=== PATIENT | female | born 1985 | race Caucasian/White ===

== ENCOUNTER 2016-04-09 19:38 | Emergency (ER) | payer SELFPAY ==
[2016-04-09 19:48] VITALS: RESP 20
--- NOTE | 2016-04-09 19:52 | UCPHY ---
H & P Patient Type: New Chief Complaint Nursing Narrative: cough productive getting worse HPI/ROS: HPI CHIEF COMPLAINT: Cough HISTORY OF PRESENT ILLNESS: This patient very pleasant 30-year-old female, denies having any significant medical history does not take any daily medications, she presents to the urgent care with 3 days of worsening bronchitic sounding cough. Faint wheezing. Patient tells me that she had a cough intermittently for 6 months however over the past 3 days progressively worse. It is worse when she exhales and gets spasm. She denies fever, denies hemoptysis, denies productive cough, denies significant shortness of breath or chest pain or pleuritic pain. Past Medical History: Use take levothyroxine for thyroid disease but does not do so anymore Past Surgical History: denies any significant surgical history Social History: denies daily use tobacco drugs or alcohol Family History: Noncontributory ROS REVIEW OF SYSTEMS: A comprehensive 10 point review of systems is otherwise negative aside from elements mentioned in the history of present illness. Exam Constitutional triage nursing summary reviewed, vital signs reviewed, awake/ alert. Eyes normal conjunctivae and sclera, EOMI, PERRLA. HENT normal inspection, atraumatic, moist mucus membranes, no epistaxis, neck supple/ no meningismus, no raccoon eyes. Respiratory bronchitic sounding cough especially during expiratory phase, no wheezing, clear to auscultation bilaterally, normal breath sounds, no respiratory distress, no wheezing. Cardiovascular rate normal, regular rhythm, no murmur, no edema, distal pulses normal. Gastrointestinal soft, non-tender, no rebound, no guarding, normal bowel sounds, no distension, no pulsatile mass. Genitourinary no CVA tenderness. Musculoskeletal no midline vertebral tenderness, full range of motion, no calf swelling, no tenderness of extremities, no meningismus, good pulses, neurovascularly intact. Skin pink, warm, & dry, no rash, skin atraumatic. Neurologic awake, alert and oriented x 3, AAOx3, moves all 4 extremities equally, motor intact, sensory intact, CN II-XII intact, normal cerebellar, normal vision, normal speech. Psychiatric normal mood/affect. Heme/Lymph/Immune no lymphadenopathy. Differential Diagnosis: Includes but is not limited to in a particular order, upper respiratory tract infection, bronchitis, viral pneumonia, bacterial pneumonia, pneumothorax, pulmonary embolism, pertussis Medical Decision Making: patient had a x-ray chest two view to evaluate for pneumonia pneumothorax, patient be given a DuoNeb breathing treatment here in the emergency room. I feel that this patient benefit from albuterol inhaler, prednisone, guaifenesin and azithromycin. Re-evaluation: ED x-ray chest two view: negative for acute cardiopulmonary disease specifically no appreciable focal acute infiltrate. Image interpreted by myself. Source: Patient - Personal History LMP (Females 10-55): 22-28 Days Ago Current Tetanus/Diphtheria Vaccine: Unsure - Medical/Surgical History Hx Asthma: No Hx Chronic Respiratory Disease: No Hx Diabetes: No Hx Cardiac Disease: No Hx Renal Disease: No Hx Cirrhosis: No Hx Alcoholism: No Hx HIV/AIDS: No Hx Splenectomy or Spleen Trauma: No Other PMH: Normally runs low BP - Family History Significant Family History: No pertinent family hx - Social History Smoking Status: Never smoked Constitutional: Initial Vital Signs Temperature (C) 36.7 C 04/09/16 19:45 Heart Rate 54 L 04/09/16 19:45 Respiratory Rate 20 04/09/16 19:45 Blood Pressure 114/63 04/09/16 19:45 O2 Sat (%) 99 04/09/16 19:45 O2 Delivery Mode Room Air Allergies/Adverse Reactions: No Known Allergies Allergy (Verified 04/09/16 19:44) Home Medications: Medication Instructions Recorded AZITHROMYCIN [Z-PACK] 250 mg PO DAILY #6 tab 04/09/16 Albuterol [Proventil Inhaler HFA 1 - 2 puffs IH Q4H #1 mdi 04/09/16 (*)] Guaifenesin [Guaifenesin ER] 600 mg PO BID #14 tab.er.12h 04/09/16 predniSONE 60 mg PO DAILY #15 tab 04/09/16 Medical Decision Making - Data Points Medications Given: Discontinued Medications Albuterol/Ipratropium (Duoneb) 3 ml IH EDNOW ONE Stop: 04/09/16 20:00 Last Admin: 04/09/16 20:05 Dose: 3 ml Departure - Departure Disposition: Home, Routine, Self-Care Clinical Impression: Bronchitis Condition: Good Instructions: Acute Bronchitis (ED) Additional Instructions: 1. Drink lots of fluids stay well-hydrated 2. take her prescriptions as prescribed. 3.Return to the urgent care or emergency room if develops any worsening symptoms questions or concerns. Referrals: NONE *PRIMARY CARE P,. [Primary Care Provider] - As per Instructions Prescriptions: Albuterol [Proventil Inhaler HFA (*)] 1 - 2 puffs IH Q4H #1 mdi AZITHROMYCIN [Z-PACK] 250 mg PO DAILY #6 tab Guaifenesin [Guaifenesin ER] 600 mg PO BID #14 tab.er.12h predniSONE 60 mg PO DAILY #15 tab - PQRS PQRS Measurement: n/a
[2016-04-09] MEDS ORDERED: IPRATROPIUM/ALBUTEROL 3 ML DEYVIAL IH ONE (19:59)
[2016-04-09 21:15] VITALS: BP 99/64; PULSE 63; TEMP 98.4; O2SAT 94
== END 2016-04-09 21:15 | disposition home or self-care (01) ==
LOC: CED 19:38
DX: J40 Bronchitis, not specified as acute or chronic (principal)
CPT/HCPCS: 71020-PO; 99204-PO; G0463-PO

== ENCOUNTER 2017-06-28 10:54 | Emergency (ER) | payer SELFPAY ==
[2017-06-28 11:29] LABS: PLATELET COUNT 236 10^3/uL (150-400)
--- NOTE | 2017-06-28 11:29 | EDPHY ---
H & P Stated Complaint: RLQ Pain Time Seen by Provider: 06/28/17 11:10 HPI/ROS: CHIEF COMPLAINT: Right lower quadrant abdominal pain HISTORY OF PRESENT ILLNESS: 31-year-old healthy female with no history of abdominal surgeries awoke this morning with sharp stabbing right lower quadrant abdominal pain. No nausea no vomiting. No back or flank pain. No urinary abnormality. Normal bowel movement. No trauma. 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 At the time I interview and examine her she is asymptomatic. PRIMARY CARE PROVIDER: REVIEW OF SYSTEMS: A ten point review of systems was performed and is negative with the exception of the items mentioned in the HPI PAST MEDICAL & SURGICAL HISTORY: No history of abdominal surgery SOCIAL HISTORY: Nonsmoker PHYSICAL EXAM (Prior to examination, patient consented to physical exam, hands were washed and my usual and customary physical exam procedures followed) 1) GENERAL: Well-developed, well-nourished, alert and oriented. Appears to be in no acute distress. Smiling. 2) HEAD: Normocephalic, atraumatic 3) HEENT: Pupils equal, round, reactive to light bilaterally. Sclera anicteric. Nasopharynx, oropharynx, clear, no lesions. 4) NECK: Full range of motion, no meningeal signs. 5) LUNGS: Clear auscultation bilaterally, no wheezes, no rhonchi, no retractions. 6) HEART: Regular rate and rhythm, no murmur, no heave, no gallop. 7) ABDOMEN: No guarding, negative McBurney's point pain, negative So's, negative Rovsing's, negative peritoneal sign, I am unable to elicit any abdominal pain on exam, 8) MUSCULOSKELETAL: Moving all extremities, no focal areas of tenderness, no obvious trauma. No peripheral edema or discoloration. 9) BACK: No CVA tenderness, no midline vertebral tenderness, no fluctuance, no step-off, no obvious trauma, no visual or palpable abnormality. 10) SKIN: No rash, no petechiae. 11) Psychiatric: Patient is oriented X 3, there is no agitation. DIFFERENTIAL DIAGNOSIS: My differential diagnosis includes, but is not limited to, acute appendicitis, acute cholecystitis, bowel obstruction, acute pancreatitis, ovarian torsion, ectopic , gastritis and urinary tract infection. The patient understands that this diagnosis is provisional and can never be 100% accurate. This is a partial list of diagnoses considered. These considerations are based on history, physical exam, past history and reassessment. - Personal History LMP (Females 10-55): 8-14 Days Ago Current Tetanus/Diphtheria Vaccine: No Current Tetanus Diphtheria and Acellular Pertussis (TDAP): No - Medical/Surgical History Hx Asthma: No Hx Chronic Respiratory Disease: No Hx Diabetes: No Hx Cardiac Disease: No Hx Renal Disease: No Hx Cirrhosis: No Hx Alcoholism: No Hx HIV/AIDS: No Hx Splenectomy or Spleen Trauma: No Other PMH: Normally runs low BP - Social History Smoking Status: Never smoked Constitutional: Initial Vital Signs Temperature (C) 36.7 C 06/28/17 11:03 Heart Rate 47 L 06/28/17 11:03 Respiratory Rate 18 06/28/17 11:03 Blood Pressure 99/58 L 06/28/17 11:03 O2 Sat (%) 98 06/28/17 11:03 O2 Delivery Mode Room Air Allergies/Adverse Reactions: No Known Allergies Allergy (Verified 04/09/16 19:44) Home Medications: Medication Instructions Recorded AZITHROMYCIN [Z-PACK] 250 mg PO DAILY #6 tab 04/09/16 Albuterol [Proventil Inhaler HFA 1 - 2 puffs IH Q4H #1 mdi 04/09/16 (*)] guaiFENesin [Guaifenesin ER] 600 mg PO BID #14 tab.er.12h 04/09/16 predniSONE 60 mg PO DAILY #15 tab 04/09/16 Medical Decision Making - Diagnostics Imaging Results: Imaging Impressions Abdomen Ultrasound 06/28/17 11:23 Impression: 1. Nonvisualization of the appendix. Results called to Bob Rahman PA-C, at 1:30 PM. Pelvic/Renal Ultrasound 06/28/17 11:23 Impression: Negative pelvic sonogram. Small follicle cysts within the ovaries, with minimal free fluid left adnexa. Results called to Bob Rahman PA-C, at 1:30 PM. ED Course/Re-evaluation: 11:32 a.m.: Care of patient under supervision of secondary supervising physician Dr Argueta . Will obtain diagnostic studies. 1:45 p.m.: Re-evaluation. At this time she is sitting upright, eating an energy bar, smiling, states that she is has no pain. Re-examined her abdomen at this time which is soft no guarding or rebound no McBurney's point pain. Discussed her imaging results showing bilateral follicular cyst. Appendix not visualized. We discussed options. At this time I think that acute appendicitis is less than likely. I have discussed options including CT imaging now or recheck in 12 hr. She prefers recheck in 12 hr which I think is a reasonable decision. I believe her to have decision-making capacity. Definitely in the meantime she develops new or worsening symptoms to return to the ER sooner. She feels comfortable being discharged. - Data Points Laboratory Results: Laboratory Results 06/28/17 11:15 06/28/17 11:15 06/28/17 06/28/17 06/28/17 11:45 11:15 11:15 WBC RBC Hgb Hct MCV MCH MCHC RDW Plt Count MPV Neut % (Auto) Lymph % (Auto) [place] % (Auto) Eos % (Auto) Baso % (Auto) Nucleat RBC Rel Count Absolute Neuts (auto) Absolute Lymphs (auto) Absolute Monos (auto) Absolute Eos (auto) Absolute Basos (auto) Absolute Nucleated RBC Immature Gran % Immature Gran # Sodium 143 mEq/L mEq/L (135-145) Potassium 3.9 mEq/L mEq/L (3.3-5.0) Chloride 104 mEq/L mEq/L (97-110) Carbon Dioxide 26 mEq/l mEq/l (22-31) Anion Gap 13 mEq/L mEq/L (8-16) BUN 15 mg/dL mg/dL (7-23) Creatinine 0.8 mg/dL mg/dL (0.6-1.0) Estimated GFR > 60 Glucose 85 mg/dL mg/dL (70-100) Calcium 9.2 mg/dL mg/dL (8.5-10.4) Total Bilirubin 1.2 mg/dL mg/dL (0.1-1.4) Conjugated Bilirubin 0.4 mg/dL mg/dL (0.0-0.5) Unconjugated Bilirubin 0.8 mg/dL mg/dL (0.0-1.1) AST 47 IU/L H IU/L (14-46) ALT 16 IU/L IU/L (9-52) Alkaline Phosphatase 56 IU/L IU/L (38-126) Total Protein 7.3 g/dL g/dL (6.3-8.2) Albumin 4.4 g/dL g/dL (3.5-5.0) Lipase 53 IU/L IU/L (23-300) Beta HCG, Qual NEGATIVE Urine Color YELLOW Urine Appearance CLEAR Urine pH 5.0 (5.0-7.5) Ur Specific [place] 1.011 (1.002-1.030) Urine Protein NEGATIVE (NEGATIVE) Urine Ketones NEGATIVE (NEGATIVE) Urine Blood NEGATIVE (NEGATIVE) Urine Nitrate NEGATIVE (NEGATIVE) Urine Bilirubin NEGATIVE (NEGATIVE) Urine Urobilinogen NEGATIVE EU EU (0.2-1.0) Ur Leukocyte Esterase NEGATIVE (NEGATIVE) Urine RBC NONE SEEN /hpf /hpf (0-3) Urine WBC 1-3 /hpf /hpf (0-3) Ur Epithelial Cells TRACE /lpf /lpf (NONE-1+) Urine Mucus TRACE /lpf /lpf (NONE-1+) Urine Glucose NEGATIVE (NEGATIVE) 06/28/17 11:15 WBC 5.95 10^3/uL 10^3/uL (3.80-9.50) RBC 4.26 10^6/uL 10^6/uL (4.18-5.33) Hgb 13.7 g/dL g/dL (12.6-16.3) Hct 41.4 % % (38.0-47.0) MCV 97.2 fL fL (81.5-99.8) MCH 32.2 pg pg (27.9-34.1) MCHC 33.1 g/dL g/dL (32.4-36.7) RDW 12.3 % % (11.5-15.2) Plt Count 236 10^3/uL 10^3/uL (150-400) MPV 9.9 fL fL (8.7-11.7) Neut % (Auto) 66.4 % % (39.3-74.2) Lymph % (Auto) 25.7 % % (15.0-45.0) [place] % (Auto) 6.4 % % (4.5-13.0) Eos % (Auto) 0.5 % L % (0.6-7.6) Baso % (Auto) 0.8 % % (0.3-1.7) Nucleat RBC Rel Count 0.0 % % (0.0-0.2) Absolute Neuts (auto) 3.95 10^3/uL 10^3/uL (1.70-6.50) Absolute Lymphs (auto) 1.53 10^3/uL 10^3/uL (1.00-3.00) Absolute Monos (auto) 0.38 10^3/uL 10^3/uL (0.30-0.80) Absolute Eos (auto) 0.03 10^3/uL 10^3/uL (0.03-0.40) Absolute Basos (auto) 0.05 10^3/uL 10^3/uL (0.02-0.10) Absolute Nucleated RBC 0.00 10^3/uL 10^3/uL (0-0.01) Immature Gran % 0.2 % % (0.0-1.1) Immature Gran # 0.01 10^3/uL 10^3/uL (0.00-0.10) Sodium Potassium Chloride Carbon Dioxide Anion Gap BUN Creatinine Estimated GFR Glucose Calcium Total Bilirubin Conjugated Bilirubin Unconjugated Bilirubin AST ALT Alkaline Phosphatase Total Protein Albumin Lipase Beta HCG, Qual Urine Color Urine Appearance Urine pH Ur Specific [place] Urine Protein Urine Ketones Urine Blood Urine Nitrate Urine Bilirubin Urine Urobilinogen Ur Leukocyte Esterase Urine RBC Urine WBC Ur Epithelial Cells Urine Mucus Urine Glucose Departure - Departure Disposition: Home, Routine, Self-Care Clinical Impression: Abdominal pain Qualifiers: Abdominal location: right lower quadrant Qualified Code(s): R10.31 - Right lower quadrant pain Condition: Good Instructions: Acute Abdominal Pain (ED) Additional Instructions: Seek immediate medical attention if you develop new or worsening symptoms, if you develop fevers, chills, inability to tolerate oral intake or any other symptoms that concerns you. Referrals: Dena Hardy MD [Medical Doctor] - 2-3 days, call for appt. (Dr Hardy is an ob /screedman) Return, to the ER in 12 hr for recheck [Other] - As per Instructions
[2017-06-28 14:14] VITALS: BP 97/68
== END 2017-06-28 14:12 | disposition home or self-care (01) ==
DX: R10.31 Right lower quadrant pain (principal)

== ENCOUNTER 2018-01-21 14:10 | Emergency (ER) | payer SELFPAY ==
--- NOTE | 2018-01-21 15:21 | EDPHY ---
H & P Stated Complaint: L Cp "entire life" then last night Pain in L arm Time Seen by Provider: 01/21/18 15:20 HPI/ROS: CHIEF COMPLAINT: Episodic chest pain HISTORY OF PRESENT ILLNESS: The patient presents to the ED requesting evaluation of years of episodic chest pain. She reports she experiences chest pain several times a day. It is not precipitated by exertion. She describes it as a sharp substernal discomfort. She denies any asymmetric calf pain or swelling. She denies pleuritic chest pain. She does report that she had pain in her left arm earlier today. The patient did have an echocardiogram in 2004 for her symptoms which reportedly was unremarkable. The patient is currently asymptomatic. REVIEW OF SYSTEMS: A comprehensive 10 point review of systems is otherwise negative aside from elements mentioned in the history of present illness. Source: Patient Exam Limitations: No limitations - Personal History LMP (Females 10-55): 22-28 Days Ago - Medical/Surgical History Hx Asthma: No Hx Chronic Respiratory Disease: No Hx Diabetes: No Hx Cardiac Disease: No Hx Renal Disease: No Hx Cirrhosis: No Hx Alcoholism: No Hx HIV/AIDS: No Hx Splenectomy or Spleen Trauma: No Other PMH: echo 2004 normal "athletic heart". normally runs low BP - Social History Smoking Status: Never smoked - Physical Exam Exam: General Appearance: Alert, no distress Eyes: Pupils equal and round no pallor or injection ENT, Mouth: Mucous membranes moist Respiratory: There are no retractions, lungs are clear to auscultation Cardiovascular: Regular rate and rhythm Gastrointestinal: Abdomen is soft and nontender, no masses, bowel sounds normal Neurological: A&O, normal motor function, normal sensory exam, normal cranial nerves Skin: Warm and dry, no rashes Musculoskeletal: Neck is supple nontender Extremities: symmetrical, full range of motion Constitutional: Initial Vital Signs Temperature (C) 36.7 C 01/21/18 14:12 Heart Rate 64 01/21/18 14:12 Respiratory Rate 16 01/21/18 14:12 Blood Pressure 100/72 01/21/18 14:12 O2 Sat (%) 97 01/21/18 14:12 O2 Delivery Mode Room Air Allergies/Adverse Reactions: No Known Allergies Allergy (Verified 04/09/16 19:44) Home Medications: Medication Instructions Recorded NK [No Known Home Meds] 01/21/18 Medical Decision Making - Diagnostics EKG Interpretation: EKG: Complete interpretation has been separately recorded in the [facility] archive. Summary impression: Sinus rhythm, rate 52 Imaging Results: Chest x-ray AP/lateral: Images reviewed by myself. Impression: Negative for acute disease ED Course/Re-evaluation: The patient presents the emergency department with atypical chest pain that is been present most of her adult life. The patient's pain is nonexertional, nonpleuritic and she reportedly had a negative echocardiogram in her 20s for evaluation of the symptoms. Workup in the emergency department today consisted of a normal EKG, unremarkable chest x-ray and negative troponin. The patient is felt to be low risk for acute coronary syndrome. HEART score 0. Patient will be referred to outpatient Cardiology for further evaluation and management. There is nothing to suggest pulmonary embolism or aortic dissection as a cause of her symptoms today. Differential Diagnosis: Differential diagnosis considered includes acute coronary syndrome, pericarditis , myocarditis, pneumothorax, esophageal spasm - Data Points Laboratory Results: 01/21/18 15:42 POC Troponin I 0.00 ng/mL ng/mL (0.00-0.08) Point of Care Test Results: Chemistry 01/21/18 15:42 POC Troponin I 0.00 ng/mL ng/mL (0.00-0.08) Departure - Departure Disposition: Home, Routine, Self-Care Clinical Impression: Chest pain Condition: Good Instructions: Chest Pain (ED) Additional Instructions: 1. Based upon the testing done in the Emergency Department today we see no evidence of a heart attack. 2. We are unable to fully exclude coronary artery disease based upon the testing available in the Emergency Department. 3. For this reason, we would like you to be seen by cardiology for consideration of additional testing within the next 3 days. 4. Please contact the [employer] operator you have been referred to schedule this appointment as soon as possible. Their offices are typically open from 8:30am- 5pm M-F. 5. Please return to the Emergency Department immediately for any recurrent chest pain, difficulty breathing or other concerns. Referrals: Sofy Chu MD [Medical Doctor] - As per Instructions
--- NOTE | 2018-01-21 15:51 | CPEKG ---
Test Reason : OPEN Blood Pressure : / mmHG Vent. Rate : 052 BPM Atrial Rate : 053 BPM P-R Int : 177 ms QRS Dur : 068 ms QT Int : 463 ms P-R-T Axes : 070 049 055 degrees QTc Int : 431 ms Sinus rhythm Confirmed by Abdiaziz Pandey ([id number]) on 01/21/2018 3:50:41 PM Referred By: Confirmed By:Abdiaziz Pandey
[2018-01-21 16:09] VITALS: BP 94/61
== END 2018-01-21 16:09 | disposition home or self-care (01) ==
DX: R07.9 Chest pain, unspecified (principal)
CPT/HCPCS: 84484-PO